=== PATIENT | male | born 1960 | race Caucasian/White ===

== ENCOUNTER → 2025-01-07 14:41 | Outpatient (REF) | payer OTHER, SELFPAY | LOC: RAD 14:41 | PROVIDERS: ATTENDING PHYSICIAN Orthopaedic Surgery Hand Surgery; FAMILY PHYSICIAN Family Medicine | DX: M66.20 Spontaneous rupture of extensor tendons, unspecified site (principal) | CPT/HCPCS: 36415; 70030 ==

== ENCOUNTER → 2025-02-19 10:58 | Outpatient (REF) | payer OTHER, SELFPAY | LOC: RAD 10:58 | PROVIDERS: ATTENDING PHYSICIAN Internal Medicine Rheumatology; FAMILY PHYSICIAN Family Medicine | DX: M25.50 Pain in unspecified joint (principal) | CPT/HCPCS: 73110; 73130 ==